=== PATIENT | female | born 1995 | race Two or more races ===

== ENCOUNTER 2021-03-27 05:33 | Day surgery (SDC) | payer OTHER ==
[2021-03-27] MEDS ORDERED: RHOGAM ULTR1500 UNIT IM (09:13)
== END 2021-03-27 15:40 | disposition home or self-care (01) ==
LOC: CIR.AMB 05:33
PROVIDERS: ATTEND Student in an Organized Health Care Education/Training Program
DX: O02.1 Missed abortion (principal); Z20.822 Contact with and (suspected) exposure to COVID-19

== ENCOUNTER 2022-07-23 09:04 | Outpatient (CLI) | payer OTHER ==
[~2022-07-23 09:04] MED LIST: RHOGAM ULTR1500 UNIT IM
== END 2022-07-23 16:33 | disposition home or self-care (01) ==
LOC: PRENATAL 09:04
PROVIDERS: ATTEND Obstetrics & Gynecology Maternal & Fetal Medicine
DX: O35.9XX0 Maternal care for (suspected) fetal abnormality and damage, unspecified, not applicable or unspecified (principal); O35.3XX0 Maternal care for (suspected) damage to fetus from viral disease in mother, not applicable or unspecified; Z3A.20 20 weeks gestation of pregnancy

== ENCOUNTER 2022-10-14 09:22 | Outpatient (CLI) | payer OTHER | END 2022-10-14 10:19 | disposition home or self-care (01) | LOC: PRENATAL 09:22 | PROVIDERS: ATTEND Obstetrics & Gynecology Maternal & Fetal Medicine | DX: O26.849 Uterine size-date discrepancy, unspecified trimester (principal); O35.3XX0 Maternal care for (suspected) damage to fetus from viral disease in mother, not applicable or unspecified; O36.8199 Decreased fetal movements, unspecified trimester, other fetus; Z3A.32 32 weeks gestation of pregnancy ==

== ENCOUNTER 2022-11-11 21:25 | Inpatient (IN) | payer OTHER ==
[~2022-11-11] VITALS: Ht 149.9 cm; Wt 74.4 kg
[2022-11-11] MEDS ORDERED: PRENATAL TABLE1 EAC1 (22:45)
[2022-11-15] MEDS ORDERED: SIMETHICONE80 MG PO (11:52)
[2022-11-15] MEDS ORDERED: COLACE100 MG PO (11:52)
[2022-11-15] MEDS ORDERED: PERCOCET 5-3251 EACH PO (11:52)
[2022-11-15] MEDS ORDERED: IBU800 MG PO (11:52)
== END 2022-11-15 13:31 | disposition home or self-care (01) | DRG 786 ==
LOC: OB/GYN 21:25 → LDR 21:25 → O/R 11-12 18:48 → OB/GYN 11-12 22:42
PROVIDERS: Student in an Organized Health Care Education/Training Program; ADMIT Obstetrics & Gynecology; ATTEND Obstetrics & Gynecology
PROC: 4A1HXCZ Monitoring of Products of Conception, Cardiac Rate, External Approach (ICD-10-PCS; 2022-11-11)
PROC: 3E033VJ Introduction of Other Hormone into Peripheral Vein, Percutaneous Approach (ICD-10-PCS; 2022-11-12)
PROC: 10D00Z1 Extraction of Products of Conception, Low, Open Approach (ICD-10-PCS; principal; 2022-11-12 16:00)
PROC: 3E0P7VZ Introduction of Hormone into Female Reproductive, Via Natural or Artificial Opening (ICD-10-PCS; 2022-11-13)
DX: O61.0 Failed medical induction of labor (principal); O60.23X0 Term delivery with preterm labor, third trimester, not applicable or unspecified; O36.8330 Maternal care for abnormalities of the fetal heart rate or rhythm, third trimester, not applicable or unspecified; Z3A.36 36 weeks gestation of pregnancy; Z37.0 Single live birth; Z20.822 Contact with and (suspected) exposure to COVID-19